=== PATIENT | female | born 1985 | race African-American/Black ===

== ENCOUNTER 2020-12-05 06:25 | Inpatient (IN) | payer OTHER ==
[2020-12-05] MEDS ORDERED: ELECTROLYTE-148 SOLN 500 ML IV ONE ×3 (07:00→08:12)
[2020-12-05] MEDS ORDERED: CITRIC ACID/SODIUM CITRATE 30 ML UNIT-DOSE CUP PO ONE ×2 (07:00→08:13)
[2020-12-05] MEDS ORDERED: morphine SULFATE/Preservative Free 0.5 MG/ML (1cc Syringe) ONE (07:54)
[2020-12-05 07:59] VITALS: BMI 47.0
[2020-12-05] MEDS ORDERED: SUCCINYLCHOLINE CHLORIDE 200 MG/10 ML SYRINGE ONE (08:02)
[2020-12-05] MEDS ORDERED: ePHEDrine SULFATE 50 MG/1 ML AMPULE ONE (08:02)
[2020-12-05] MEDS ORDERED: PROPOFOL 20 ML ONE (08:02)
[2020-12-05] MEDS ORDERED: OXYTOCIN 10 UNITS/ML VIAL ONE (08:09)
[2020-12-05] MEDS ORDERED: ceFAZolin SODIUM 1 GM VIAL ONE ×2 (08:09)
[2020-12-05] MEDS ORDERED: PHENYLEPHRINE HCL 10 MG/1 ML SINGLE DOSE VIAL ONE (08:10)
[2020-12-05] MEDS ORDERED: ONDANSETRON 4 MG/2 ML VIAL ONE (08:12)
[2020-12-05] MEDS ORDERED: KETOROLAC TROMETHAMINE 30 MG/1 ML VIAL ONE (08:12)
[2020-12-05] MEDS ORDERED: DEXAMETHASONE SOD PHOSPHATE 4 MG/1 ML VIAL ONE (08:12)
[2020-12-05] MEDS: OXYTOCIN 20 UNITS in 0.9% NS 20 UNIT/1,000 ML INFUS.BAG IV SCH ×2 (08:40→22:38)
[2020-12-05] MEDS: ELECTROLYTE-148 SOLN 1,000 ML IV SCH (08:45)
[2020-12-05] MEDS ORDERED: METHYLERGONOVINE MALEATE 0.2 MG/1 ML AMP IM PRN (09:56)
[2020-12-05] MEDS ORDERED: ONDANSETRON 4 MG/2 ML VIAL IVPUSH PRN (10:00)
[2020-12-05] MEDS ORDERED: oxyCODONE HCL 5 MG TABLET PO PRN (10:05)
[2020-12-05] MEDS ORDERED: SENNOSIDES/DOCUSATE COMBO (SENNA PLUS) TABLET (UD) PO PRN (10:07)
[2020-12-05] MEDS: PRENATAL VITAMINS W/ FOLIC ACID TABLET (FP) PO SCH (10:15)
[2020-12-05] MEDS ORDERED: IBUPROFEN 800 MG/8 ML IJ IVPB ONE (11:12)
[2020-12-05] MEDS ORDERED: OXYTOCIN 20 UNITS in 0.9% NS 20 UNIT/1,000 ML INFUS.BAG IV ONE (11:13)
[2020-12-05] MEDS: IBUPROFEN 800 MG/8 ML IJ IVPB PRN ×2 (11:25→20:29)
[2020-12-05 12:07] LABS: HIV INTERPRETATION NEGATIVE (NEGATIVE)
[2020-12-06] MEDS: IBUPROFEN 800 MG/8 ML IJ IVPB PRN (06:27)
[2020-12-06 06:40] LABS: BASO % 0.4 % (0-2.0); EOS % 0.4 % (0-4.5); HEMATOCRIT 28.8 % (32.4-45.2); HEMOGLOBIN 9.9 GM/dL (10.7-15.3); LYMPH % 18.8 % (8-40); MCH 30.2 pg (25.7-33.7); MCHC 34.4 g/dl (32.0-36.0); MEAN CELL VOLUME 87.7 fl (80-96); MEAN PLT VOLUME 9.6 fl (7.5-11.1); MONO % 9.9 % (3.8-10.2); NEUT % 70.5 % (42.8-82.8); PLATELET COUNT 160 K/MM3 (134-434); RBC 3.28 M/mm3 (3.60-5.2); RDW 15.9 % (11.6-15.6)
[2020-12-06] MEDS: ACETAMINOPHEN 325 MG TABLET (FP) PO PRN ×2 (07:55→13:07)
[2020-12-06] MEDS: SIMETHICONE 80 MG TAB.CHEW (FP) PO PRN ×3 (07:56→21:39)
[2020-12-06] MEDS: PRENATAL VITAMINS W/ FOLIC ACID TABLET (FP) PO SCH (09:50)
[2020-12-06] MEDS ORDERED: BISACODYL 10 MG SUPP.RECT RC PRN (10:04)
[2020-12-06] MEDS: IBUPROFEN 600 MG TABLET (FP) PO PRN (13:07)
[2020-12-06] MEDS: oxyCODONE HCL 5 MG TABLET PO PRN ×2 (14:18→21:40)
[2020-12-06] MEDS: ELECTROLYTE-148 SOLN 1,000 ML IV SCH (22:57)
[2020-12-06] MEDS: OXYTOCIN 20 UNITS in 0.9% NS 20 UNIT/1,000 ML INFUS.BAG IV SCH (22:58)
[2020-12-07] MEDS: ACETAMINOPHEN 325 MG TABLET (FP) PO PRN ×2 (01:06→08:10)
[2020-12-07] MEDS: IBUPROFEN 600 MG TABLET (FP) PO PRN ×2 (01:08→08:09)
[2020-12-07] MEDS: SIMETHICONE 80 MG TAB.CHEW (FP) PO PRN (01:08)
[2020-12-07] MEDS: PRENATAL VITAMINS W/ FOLIC ACID TABLET (FP) PO SCH (09:45)
[2020-12-07 10:29] VITALS: BP 125/64; PULSE 98; TEMP 98.1
== END 2020-12-07 13:00 | disposition home or self-care (01) | DRG 540 ==
LOC: JLDR 06:25 → J3W 11:57
PROVIDERS: ADMIT Obstetrics & Gynecology; ATTEND Obstetrics & Gynecology
PROC: 10D00Z1 Extraction of Products of Conception, Low, Open Approach (ICD-10-PCS; principal; 2020-12-05)
DX: O24.424 Gestational diabetes mellitus in childbirth, insulin controlled (principal); O40.3XX0 Polyhydramnios, third trimester, not applicable or unspecified; O64.8XX0 Obstructed labor due to other malposition and malpresentation, not applicable or unspecified; O34.13 Maternal care for benign tumor of corpus uteri, third trimester; D25.9 Leiomyoma of uterus, unspecified; Z3A.38 38 weeks gestation of pregnancy; Z37.0 Single live birth
CPT/HCPCS: 36415; 82962; 85025; 87389; 88307-TC